=== PATIENT | male | born 1975 | race Caucasian/White ===

== ENCOUNTER 2020-08-19 14:31 | Outpatient (REF) | payer BC, SELFPAY | END 2020-08-19 14:32 | disposition home or self-care (01) | LOC: HO.LAB 14:31 | PROVIDERS: PCP Internal Medicine; Visit Provider Internal Medicine | DX: Z20.828 Contact with and (suspected) exposure to other viral communicable diseases (principal) | CPT/HCPCS: C9803; U0003 ==

== ENCOUNTER 2020-08-30 13:11 | Outpatient (REF) | payer BC, SELFPAY | END 2020-08-30 13:12 | disposition home or self-care (01) | LOC: HO.LAB 13:11 | PROVIDERS: PCP Internal Medicine; Visit Provider Internal Medicine | DX: Z20.822 Contact with and (suspected) exposure to COVID-19 (principal) | CPT/HCPCS: 36415; C9803; U0003 ==

== ENCOUNTER 2021-02-03 07:59 | Outpatient (REF) | payer BC, SELFPAY ==
--- NOTE | 2021-02-03 08:30 | EMG_ITS ---
Bilateral median and ulnar motor and sensory studies were performed. Bilateral radial sensory study was performed and paraspinal muscles were tested. IMPRESSION: 1. Rayp-go-srvltghd bilateral median neuropathy across carpal tunnel. 2. Mild right ulnar neuropathy across cubital tunnel. MD BERNA Travis/KRISTEN / [phone]
== END 2021-02-03 08:00 | disposition home or self-care (01) ==
LOC: HO.NEURO 07:59
PROVIDERS: PCP Internal Medicine Geriatric Medicine; Visit Provider Internal Medicine Geriatric Medicine
DX: G56.03 Carpal tunnel syndrome, bilateral upper limbs (principal)
CPT/HCPCS: 95886; 95911

== ENCOUNTER 2023-07-24 08:21 | Outpatient (REF) | payer SELFPAY ==
[2023-07-24 12:14] LABS: Vitamin B12 743 pg/mL (200-900)
[2023-07-24 12:30] LABS: Alanine Aminotransferase 55 U/L (0-40); Albumin Level 3.9 g/dL (3.5-5.0); Alkaline Phosphatase 62 U/L (39-117); Anion Gap 12 (12-20); Aspartate Amino Transferase 18 U/L (5-37); Bilirubin Direct 0.2 mg/dL (0.0-0.5); Bilirubin Total 0.5 mg/dL (0.0-1.0); Blood Urea Nitrogen 18 mg/dL (9-16); Calcium 9.5 mg/dL (8.4-10.2); Carbon Dioxide 29 mmol/L (22-29); Chloride 104 mmol/L (96-108); Cholesterol 157 mg/dL (<200); Estimated Glomerular Filt Rate > 60; Glucose Random 108 mg/dL (60-115); HDL Cholesterol 56 mg/dL (>40); LDL Cholesterol Calculated 84 mg/dL (<100); Potassium 4.1 mmol/L (3.3-5.1); Sodium 141 mmol/L (135-145); Total Protein 7.2 g/dL (6.5-8.0); Triglycerides 85 mg/dL (<150)
[2023-07-24 14:33] LABS: Creatinine Urine 171.06 mg/dL; Microalbum/Creatinine Ratio Ur 50.8 ug/mg cr (<30)
[2023-07-25 08:14] LABS: HBS Num1 0.48 mIU/mL (0-7.99); HBc Num1 0.07 S/CO (0.00-0.79); HBsAGNum1 0.35 S/CO (0.00-0.99); Hepatitis B Core Antibody Nonreactive (Nonreactive); Hepatitis B Surface Antigen Negative (Negative); ~Hepatitis B Surface Antibody NONREACTIVE (Nonreactive)
== END 2023-07-24 08:22 | disposition home or self-care (01) ==
LOC: HO.HHCL 08:21
PROVIDERS: Visit Provider Internal Medicine Geriatric Medicine
DX: E78.00 Pure hypercholesterolemia, unspecified (principal); E11.65 Type 2 diabetes mellitus with hyperglycemia; I10 Essential (primary) hypertension
CPT/HCPCS: 36415; 80048; 80061; 80076; 82043; 82570; 82607; 86704; 86706; 87340

== ENCOUNTER 2023-08-02 10:57 | Outpatient (REF) | payer SELFPAY ==
[2023-08-02 12:13] LABS: Alanine Aminotransferase 58 U/L (0-40); Alkaline Phosphatase 69 U/L (39-117); Anion Gap 9 (12-20); Aspartate Amino Transferase 24 U/L (5-37); Bilirubin Direct 0.2 mg/dL (0.0-0.5); Bilirubin Total 0.5 mg/dL (0.0-1.0); Blood Urea Nitrogen 17 mg/dL (9-16); Calcium 9.3 mg/dL (8.4-10.2); Carbon Dioxide 30 mmol/L (22-29); Chloride 103 mmol/L (96-108); Cholesterol 141 mg/dL (<200); Estimated Glomerular Filt Rate > 60; Glucose Random 149 mg/dL (60-115); HDL Cholesterol 41 mg/dL (>40); LDL Cholesterol Calculated 74 mg/dL (<100); Potassium 4.6 mmol/L (3.3-5.1); Sodium 137 mmol/L (135-145); Total Protein 7.3 g/dL (6.5-8.0); Triglycerides 133 mg/dL (<150)
[2023-08-02 12:52] LABS: Vitamin B12 877 pg/mL (200-900)
[2023-08-02 14:02] LABS: Creatinine Urine 80.29 mg/dL; Microalbum/Creatinine Ratio Ur 39.8 ug/mg cr (<30)
[2023-08-03 07:24] LABS: HBS Num1 37.14 mIU/mL (0-7.99); HBsAGNum1 0.28 S/CO (0.00-0.99); Hepatitis B Core Antibody Nonreactive (Nonreactive); Hepatitis B Surface Antigen Negative (Negative); ~Hepatitis B Surface Antibody REACTIVE (Nonreactive)
== END 2023-08-02 10:58 | disposition home or self-care (01) ==
LOC: HO.HHCL 10:57
PROVIDERS: Visit Provider Internal Medicine Geriatric Medicine
DX: E11.65 Type 2 diabetes mellitus with hyperglycemia (principal); E78.00 Pure hypercholesterolemia, unspecified; I10 Essential (primary) hypertension
CPT/HCPCS: 36415; 80048; 80061; 80076; 82043; 82570; 82607; 86704; 86706; 87340

== ENCOUNTER 2023-08-21 15:23 | Outpatient (REF) | payer OTHER, SELFPAY ==
[2023-08-21 16:28] LABS: Anion Gap 12 (12-20); Blood Urea Nitrogen 19 mg/dL (9-16); Calcium 9.1 mg/dL (8.4-10.2); Carbon Dioxide 28 mmol/L (22-29); Chloride 104 mmol/L (96-108); Estimated Glomerular Filt Rate > 60; Glucose Random 221 mg/dL (60-115); Potassium 4.6 mmol/L (3.3-5.1); Sodium 139 mmol/L (135-145)
== END 2023-08-21 15:24 | disposition home or self-care (01) ==
LOC: HO.HHCL 15:23
PROVIDERS: Visit Provider Internal Medicine Geriatric Medicine
DX: I10 Essential (primary) hypertension (principal)
CPT/HCPCS: 36415; 80048

== ENCOUNTER 2023-09-05 15:35 | Outpatient (REF) | payer OTHER, SELFPAY ==
--- NOTE | ~2023-09-05 | US_ITS ---
EXAMINATION: US BILATERAL LOWER EXTREMITY DUPLEX. CLINICAL INFORMATION: Decreased pedal pulses COMPARISON: None TECHNIQUE: Duplex Doppler techniques with wave form analysis and measurement of velocities in the common femoral, profunda femoral, superficial femoral, popliteal, tibial and peroneal arteries was performed. The study was performed only at rest. FINDINGS: RIGHT LEG: Common femoral artery: 109 cm/s, Multiphasic Profunda femoris artery: 106 cm/s, Multiphasic Superficial femoral artery (proximal): 93 cm/s, Multiphasic Superficial femoral artery (mid): 92 cm/s, Multiphasic Superficial femoral artery (distal): 77 cm/s, Multiphasic Distal popliteal artery: 77 cm/s, Multiphasic Mid posterior tibial artery: 80 cm/s, Multiphasic Peroneal artery: 78 cm/s, Multiphasic LEFT LEG: Common femoral artery: 125 cm/s, Multiphasic Profunda femoris artery: 55 cm/s, Multiphasic Superficial femoral artery (proximal): 78 cm/s, Multiphasic Superficial femoral artery (mid): 80 cm/s, Multiphasic Superficial femoral artery (distal): 73 cm/s, Multiphasic Proximal Popliteal artery: 86 cm/s, Multiphasic Mid posterior tibial artery: 92 cm/s, Multiphasic Peroneal artery: 51 cm/s, Multiphasic US/US arterial duplex LE BI IMPRESSION: No evidence of lower extremity peripheral vascular disease based on Doppler criteria.
== END 2023-09-05 15:36 | disposition home or self-care (01) ==
LOC: HO.US 15:35
PROVIDERS: PCP Internal Medicine Geriatric Medicine; Visit Provider Internal Medicine Geriatric Medicine
DX: R09.89 Other specified symptoms and signs involving the circulatory and respiratory systems (principal)
CPT/HCPCS: 93925

== ENCOUNTER 2023-09-26 09:12 | Outpatient (REF) | payer OTHER, SELFPAY ==
--- NOTE | ~2023-09-26 | XR_ITS ---
EXAMINATION: XR CHEST CLINICAL INFORMATION: Reason for Exam R06.00 - Dyspnea, unspecified COMPARISON: None TECHNIQUE: 2 views of the chest FINDINGS: Lines and tubes: None. Clear lungs. No pleural effusion. No pneumothorax. Normal cardiomediastinal silhouette. XR/XR chest 2V IMPRESSION: * Clear lungs.
== END 2023-09-26 09:13 | disposition home or self-care (01) ==
LOC: HO.XRAY 09:12
PROVIDERS: PCP Internal Medicine Geriatric Medicine; Referring Provider Internal Medicine Geriatric Medicine; Visit Provider Hospitalist
DX: R06.00 Dyspnea, unspecified (principal)
CPT/HCPCS: 71046

== ENCOUNTER 2023-09-26 09:12 | Outpatient (AMB) | payer OTHER, SELFPAY ==
--- NOTE | 2023-09-26 09:14 | MHC.OFFVIS ---
Intake Vital Signs 09/26/23 09:16 Height 5 ft 10 in Weight 245 lb 13.047 oz BMI 35.3 Pulse 88 Pulse Source Pulse Oximeter Pulse Oximetry (%) 96 Oxygen Delivery Method Room Air Intake Visit Reasons: Cough Allergies No Known Allergies Allergy (Verified 09/26/23 09:17) HPI HPI Comments History of Present Illness Details The patient is here for a pulmonary evaluation. The patient is a very nice 48-year-old gentleman with a known history of diabetes hypertension and hypercholesterolemia. Was in her usual state health until recently when he started developing increasing shortness of breath and cough. He had just been started on an YAMILET-inhibitor. The patient did follow-up with his primary care doctor and he was taken off the YAMILET inhibitor in a lot of his symptoms improved. Still does have some dyspnea on exertion. Mild in severity. 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 Although he denies any significant exposure at 1 time. The patient does have issues with daytime drowsiness. He also has a hard time sleeping. His [place] score is elevated at 10 over 24. Based on the fact the patient has significant cardiovascular risk factors and his ongoing daytime drowsiness with documented snoring the patient will undergo home sleep study. In regards to the shortness of breath he has not had any imaging studies. Clinically the patient is doing well. We did go for brief walking oximetry the patient did very well with a pulse ox of 99 %. Heart rate was stable. Patient likely will benefit from pulmonary function studies but we can have those done in the future. I do not believe that he needs any inhaler at this time. [facility] Medical History (Updated 09/26/23 @ 18:22 by Grayson Dykes MD) Dyspnea Social History (Updated 09/26/23 @ 09:20 by JEAN PIERRE Alexander) Patient Tobacco Use Status: Former Tobacco user Tobacco use type: Cigarette Years Smoked: 10 Years Review of Systems Const Reports daytime sleepiness, Reports difficulty sleeping and Reports snoring Eyes Reports no additional complaints ENT Reports nasal congestion Card Denies chest pain and Reports dyspnea on exertion Resp Reports cough, Reports dyspnea on exertion, Reports snoring and Denies wheezing GI Reports no additional complaints Musc Reports no additional complaints Skin/Breast Denies rash Neuro Reports no additional complaints Endo Denies flushing Cecil/Lymph Denies lymphadenopathy Aller/Immun Denies wheezing Physical Exam Vital Signs: Last Vital Signs Pulse 88 09/26/23 09:16 Pulse Ox 96 09/26/23 09:16 Oxygen Delivery Method Room Air 09/26/23 09:16 BMI result Body Mass Index 35.3 Const General: comfortable HEENT Head: Yes normocephalic Neck Neck: Yes supple Chest Chest palpation & inspection: normal inspection of the chest Resp Effort & Inspection: normal respiratory effort Auscultation: clear to auscultation bilaterally Cardio Heart sounds: S1 normal heart sound present and S2 normal heart sound present GI Palpation (GI): Soft to palpation Skin General skin exam: no rashes or lesions noted Extrem General: Yes no clubbing, cyanosis or edema Assessment & Plan Assessment & Plan (1) Dyspnea: Comment: Likely multifactorial. Feeling better after stopping the YAMILET inhibitor. Code(s): R06.00 - Dyspnea, unspecified Qualifiers: Dyspnea type: dyspnea on exertion Qualified Code(s): R06.09 - Other forms of dyspnea (2) MARY (obstructive sleep apnea): Code(s): G47.33 - Obstructive sleep apnea (adult) (pediatric) Plan CXR Home PSG PFTs in the near future F/U 2-3 months Orders: Orders RT home sleep study Today G47.33 - Obstructive sleep apnea (adult) (pediatric) XR chest 2V Today R06.00 - Dyspnea, unspecified Coding Level of Care Code New Pt Level 4 (74507) Diagnoses Dyspnea on exertion R06.09 Dyspnea type: dyspnea on exertion MARY (obstructive sleep apnea) G47.33 Time Spent (min) 36
[2023-09-26 09:16] VITALS: PULSE 88; O2SAT 96; BMI 35.3
== END 2023-09-26 09:37 | disposition home or self-care (01) ==
PROVIDERS: PCP Internal Medicine Geriatric Medicine; Referring Provider Internal Medicine Geriatric Medicine; Visit Provider Hospitalist
DX: R06.09 Other forms of dyspnea (principal); G47.33 Obstructive sleep apnea (adult) (pediatric)
CPT/HCPCS: 99204

== ENCOUNTER 2024-01-15 15:34 | Outpatient (REF) | payer OTHER, SELFPAY ==
[2024-01-15 18:45] LABS: Anion Gap 12 (12-20); Blood Urea Nitrogen 21 mg/dL (9-16); Calcium 8.6 mg/dL (8.4-10.2); Carbon Dioxide 25 mmol/L (22-29); Chloride 108 mmol/L (96-108); Estimated Glomerular Filt Rate > 60; Glucose Random 218 mg/dL (60-115); Potassium 4.2 mmol/L (3.3-5.1); Sodium 141 mmol/L (135-145)
== END 2024-01-15 15:35 | disposition home or self-care (01) ==
LOC: HO.HHCL 15:34
PROVIDERS: Visit Provider Internal Medicine Geriatric Medicine
DX: I10 Essential (primary) hypertension (principal)
CPT/HCPCS: 36415; 80048

== ENCOUNTER 2024-11-06 09:05 | Outpatient (REF) | payer OTHER, SELFPAY ==
--- OUTSIDE RECORDS SUMMARY | 2024-11-06 09:39 | XMS_ITS | Clinical Summary ---
Author Organization [facility] Address [address] [place] [address] [address] [place] [address] Care Team Providers Care Contract Engineer Name Role Phone Name, Charles FERNANDES Primary Care Provider [phone] Cara Low PharmD Unavailable [phone] Allergies No known active allergies Medications Blood Pressure kitIndications:Hyperte nsion, unspecified type Use once a day 1 kit 2022 Active sildenafil (Viagra) 50 MG tablet take 1 tablet by oral route every day as needed approximately 1 hour before sexual activity 2020 Active empagliflozin (Jardiance) 10 MGIndications:Type 2 diabetes mellitus with hyperglycemia, without long-term current use of insulin ([facility]) Take 1 tablet (10 mg) by mouth Once per day. 30 tablet 5 2024 Active Dulaglutide 0.75 MG/0.5ML solution auto-injectorIndicatio ns:Type 2 diabetes mellitus with hyperglycemia, without long-term current use of insulin ([facility]) Inject 0.75 mg under the skin 1 (one) time per week. 2 mL 5 2024 Active atorvastatin (Lipitor) 20 MG tabletIndications:Type 2 diabetes mellitus with hyperglycemia, without long-term current use of insulin ([facility]),Pure hypercholesterolemia Take 1 tablet (20 mg) by mouth Once daily. 30 tablet 5 2024 Active amLODIPine-valsartan (Exforge) 5-160 MG tabletIndications:Hype rtension, unspecified type Take 1 tablet by mouth Once per day. 30 tablet 2 2024 Active glucose blood (OneTouch Verio) test strip Use to test blood sugar 1 time(s) daily 100 each 3 2024 Active Blood Glucose Monitoring Suppl (OneTouch Verio) w/Device kit Use to test blood sugar once daily as directed 1 kit 2024 Active OneTouch Delica Lancets 33G misc Use to test blood sugar once daily as directed 100 each 3 2024 Active Blood Glucose Monitoring Suppl (FreeStyle Lite) w/Device kitIndications:Type 2 diabetes mellitus with hyperglycemia, without long-term current use of insulin ([facility]),Hypertension , unspecified type 1 kit in the morning. 1 kit 10/21 Discontinued atorvastatin (Lipitor) 20 MG tabletIndications:Type 2 diabetes mellitus with hyperglycemia, without long-term current use of insulin ([facility]) Take 1 tablet (20 mg) by mouth Once daily. 30 tablet 11 10/21 Discontinued( Reorder (will not trigger notification to Pharmacy)) dulaglutide (Trulicity) 0.75 MG/0.5ML solution pen-injectorIndication s:Type 2 diabetes mellitus with hyperglycemia, without long-term current use of insulin ([facility]) Inject 0.75 mg under the skin 1 (one) time per week. 2 mL 11 10/21 Discontinued( Reorder (will not trigger notification to Pharmacy)) budesonide-formoterol (Symbicort) 160-4.5 MCG/ACT inhaler Inhale 2 puffs in the morning and at bedtime. Rinse mouth with water after use to reduce aftertaste and incidence of candidiasis. Do not swallow. 10/21 Discontinued( Med list cleanup (will not trigger notification to Pharmacy)) montelukast (Singulair) 10 MG tablet Take 1 tablet (10 mg) by mouth in the morning. 30 tablet 2 10/21 Discontinued( Med list cleanup (will not trigger notification to Pharmacy)) metFORMIN XR (Glucophage-XR) 500 MG 24 hr tabletIndications:Type 2 diabetes mellitus with hyperglycemia, without long-term current use of insulin ([facility]) TAKE 1 TABLET BY MOUTH EVERY MORNING (DO NOT BREAK, CRUSH, DISSOLVE OR CHEW) 30 tablet 2 10/21 Discontinued( Side effects) amLODIPine (Norvasc) 5 MG tabletIndications:Hype rtension, unspecified type Take 1 tablet (5 mg) by mouth Once per day. 30 tablet 10/21 Discontinued( Alternate therapy) losartan (Cozaar) 100 MG tabletIndications:Type 2 diabetes mellitus with hyperglycemia, without long-term current use of insulin ([facility]),Hypertension , unspecified type Take 1 tablet (100 mg) by mouth Once per day. 90 tablet 3 10/21 Discontinued( Alternate therapy) FreeStyle lancetsIndications:Typ e 2 diabetes mellitus with hyperglycemia, without long-term current use of insulin ([facility]) 1 each by Other route Once daily. Use to test BG once daily as directed 100 each 10/21 Discontinued( Reorder (will not trigger notification to Pharmacy)) glucose blood (FREESTYLE LITE) test stripIndications:Type 2 diabetes mellitus with hyperglycemia, without long-term current use of insulin ([facility]) Use to test blood sugar 1 times daily 50 strip 11 10/21 Discontinued( Reorder (will not trigger notification to Pharmacy)) empagliflozin (Jardiance) 25 MGIndications:Type 2 diabetes mellitus with hyperglycemia, without long-term current use of insulin ([facility]) Take 1 tablet (25 mg) by mouth Once per day. 30 tablet 11 10/21 Discontinued( Reorder (will not trigger notification to Pharmacy)) FreeStyle lancetsIndications:Typ e 2 diabetes mellitus with hyperglycemia, without long-term current use of insulin ([facility]) 1 each by Other route Once daily. Use to test BG once daily as directed 100 each 11 10/21 Discontinued( Alternate therapy) glucose blood (FREESTYLE LITE) test stripIndications:Type 2 diabetes mellitus with hyperglycemia, without long-term current use of insulin ([facility]) Use to test blood sugar once daily as directed 50 strip 11 10/21 Discontinued( Alternate therapy) Active Problems Problem Noted Date Diagnosed Date Mild nonproliferative diabet ic retinopathy of both eyes without macular edema associated with type 2 diabetes mellitus 07/20/2023 Type 2 diabetes mellitus 12/11/2022 Hypertensive disorder 10/30/2022 Erectile dysfunction 09/14/2019 Low back pain 09/14/2019 Weakness of left hand 09/14/2019 Fatty liver 09/04/2011 DM type 2 causing neurological disease, 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 pylori infection 06/15/2010 Overview (10/30/2022): Treated in 2007 Obesity 06/15/2010 PPD positive 06/15/2010 Encounters Date Type Department Care Team Description 10/31/2024 2:15 PM EDT Office Visit [facility] [address] [place] [phone] Evelin Betancourt CNP Routine eye exam (Primary Dx); Type 2 diabetes mellitus with hyperglycemia, without long-term current use of insulin ([facility]) 10/31/2024 Travel 10/23/2024 Patient Outreach [facility] [address] [place], [place] [phone] Charles Ferguson MD Pre-visit Planning (SDOH negative, Tobacco screening negative. ) 10/14/2024 Telephone [facility] [address] [place] [phone] Charles Ferguson MD Chart Prep 10/02/[address] [phone] Charles Ferguson MD Nurse Triage from Last 3 Months Immunizations Name Administration Dates Next Due HepB-CpG 10/31/2023,07/27/2023 MMR 08/21/2023 Pfizer Covid-19 Vaccine 12+ 01/17/2024(Deferred: Patient Refused) Pneumococcal Conjugate PCV 20 06/20/2023 TD (adult), 2 Lf tetanus tox oid, preservative free, adsorbed 08/20/2007 Tdap 04/05/2021 Social History Tobacco Use Types Packs/Day Years Used Date Smoking Tobacco: Never Smokeless Tobacco: Never Tobacco Cessation:Counseling Given: Not Answered Alcohol Use Standard Drinks/Week Comments Never 0 (1 standard drink = 0.6 oz pur e alcohol) Depression Answer Date Recorded Patient Health Questionnaire-9 Score 0 11/06/2023 Patient Health Questionnaire-9 Score 0 11/06/2023 Last PHQ-9: Questionnaire Data Not on file 0 11/06/2023 Housing Stability Answer Date Recorded What is your housing situation today? I have ainsley rebolledo 11/06/[address] you li ve. Do you have problems with any of the following? None of the above 11/06/2023 Food Insecurity Answer Date Recorded Within the past 12 months, y ou worried that your food would run out before you got money to buy more: Never True 11/06/2023 Within the past 12 months,th e food you bought just didn't last and you didn't have enough money to get more: Never True Transportation Answer Date Recorded In the past 12 months, has l ack of transportation kept you from medical appts, meetings, work or from getting things needed for daily living? No 11/06/2023 Utilities Answer Date Recorded In the past 12 months, has t he electric, gas, oil or water company threatened to shut off services in your home? No 11/06/2023 Depression Answer Date Recorded Patient Health Questionnaire-2 Score 0 11/06/2023 Internet Access Answer Date Recorded Internet Access Q1 Yes 10/23/2024 Internet Access Q2 Not on file 10/23/2024 Sex and Gender Information Value Date Recorded Sex Assigned at Male 06/19/2022 10:37 AM EDT Legal Sex Male 10:37 AM EDT Gender Identity Male 06/19/2022 10:37 AM EDT Sexual Orientation Choose not to disclose 2021 10:37 AM EDT Last Filed Vital Signs Vital Sign Reading Time Taken Comments Blood Pressure 138/88 10/31/2024 2:27 PM EDT Pulse 94 10/31/2024 2:27 PM EDT Temperature 36.8 ??C (98.2 ??F) 10/31/2024 2:27 PM ED T Respiratory Rate 18 10/31/2024 2:27 PM EDT Oxygen Saturation 99% 10/31/2024 2:27 PM EDT Inhaled Oxygen Concentration - - Weight 107 kg (236 lb) 10/31/2024 2:27 PM EDT Height 177.8 cm (5' 10 ) 11/06/2023 3:58 PM EDT Body Mass Index 33.86 11/06/2023 3:58 PM EDT Plan of Treatment Upcoming Encounters Date Type Department Care Team (Late st Contact Info) Description 11/17/2024 3:30 PM EDT Medication Management [facility] [address] [place] [phone] Cara Low, PharmD [address] [place] [address] 01/21/2025 11:30 AM EDT Office Visit [facility] [address] [place] [address] [phone] Name, MD Charles [address] [place], [place] [phone] Health Maintenance Due Date Last Done Comments CT Colonography 1976 Colonoscopy 1976 Colorectal Cancer Screening 1976 FIT DNA/Cologuard 1976 FIT 1976 FOBT 1976 HIV Screening 1976 Sigmoidoscopy 1976 Alcohol/Substance Use Screening 1988 Family Planning (PISQ) 02/21/1991 Hepatitis C Screening 02/21/1994 Hepatitis A Vaccines (1 of 2 - Risk 2-dose series) 02/21/1995 COVID-19 Vaccine ( season) 2024 01/08/2021, 12/11/2020 Influenza Vaccine (#1) 2024 Diabetes: Urine Protein Screening 08/02/2024 08/02/2023, 07/24/2023 Eye Exam 08/02/2024 08/02/2023, 06/21/2023 Lipid Panel 08/02/2024 08/02/2023, 12/2022, 11/02/2022, Additional history exists Diabetes: Foot Exam 08/07/2024 08/07/2023, 08/07/2023, 08/07/2023, Additional history exists Depression Screening 11/05/2024 11/06/2023, 11/06/19 24 Tobacco Screening 11/05/2024 11/06/2023 Diabetes: Hemoglobin A1C 01/31/2025 025, 10/21/2024, 01/17/2024, Additional history exists SDOH Screening 10/23/2025 10/23/2024 Zoster Vaccines (1 of 2) 02/21/2026 DTaP/Tdap/Td Vaccines (2 - Td or Tdap) 04/05/2031 04/05/2021, 08/20/2007 RSV Patients and Patients Aged 60 years or older (1 - 1-dose 75+ series) 02/21/2051 Pneumococcal Vaccine: Pediatrics (0 to 5 Years) and At-Risk Patients (6 to 49) Years) Completed 06/20/2023 Hepatitis B Vaccines Completed 10/31/2023, 07/27/20 23 HIB Vaccines Aged Out No longer eligi ble based on patient's age to complete this topic HPV Vaccines Aged Out No longer eligi ble based on patient's age to complete this topic IPV Vaccines Aged Out No longer eligi ble based on patient's age to complete this topic Meningococcal Vaccine Aged Out No eileen tiffanie eligible based on patient's age to complete this topic RSV under 20 months Aged Out No longe r eligible based on patient's age to complete this topic Rotavirus Vaccines Aged Out No longer eligible based on patient's age to complete this topic Goals Goal Patient Goal Type Associated Problems Recent Progress Patient-Stated? Author Blood Pressure < 140/90 Blood Pressure 138/88(2024 2:27 PM EDT) No Puia, Cara, PharmD Record your blood pressure once per day Blood Pressure No Devante, Cara, PharmD Hemoglobin A1c < 7 Result Component 9.4( 2:38 PM EDT) No Bruceia Cara, PharmD Record your blood sugar once daily as directed Result Component No Puia, Cara, PharmD Procedures Procedure Name Priority Date/Time Associated Diagnosis Comments POCT GLYCATED HEMOGLOBIN, TOTAL Routine 10/31/2024 2:38 PM EDT Type 2 diabetes mellitus with hyperglycemia, without long-term current use of insulin ([facility]) POCT GLUCOSE Routine 10/31/2024 2:27 PM EDT Type 2 diabetes mellitus with hyperglycemia, without long-term current use of insulin ([facility]) POCT GLYCATED HEMOGLOBIN, TOTAL Routine 10/21/2024 4:24 PM EST Type 2 diabetes mellitus with hyperglycemia, without long-term current use of insulin ([facility]) ALBUMIN, RANDOM URINE W/CREATININE Routine 08/02/2023 10:59 AM EST LIPID PANEL, STANDARD Routine 08/02/2023 10:59 AM EST HM DIABETES EYE EXAM Routine 08/02/2023 from Last 3 Months or Most Recently Relevant to Health Maintenance Results * (ABNORMAL) POCT HGB A1C (10/31/2024 2:38 PM EDT) Only the most recent of2 resultswithin the time period is included. Hemoglobin A1C 9.4(A) 4.0 - 6.0 % QC Media Lot # [id number] Lot# Expiration Date Blood 10/31/2024 2:38 PM EDT Result [facility] POINT OF CARE TEST ENTER/ EDIT ORDERABLES Final Result * POCT Glucose (10/31/2024 2:27 PM EDT) Glucose Blood, POC 122 60 - 200 mg/dL QC Media Lot # [id number] Lot# Expiration Date Blood Capillary blood specimen / Unknown 10/31/2024 2:27 PM EDT [facility] POINT OF CARE TEST ENTER/ EDIT ORDERABLES Final Result * (ABNORMAL) Albumin, Random Urine W/Creatinine (08/02/2023 10:59 AM EST) Creatinine, Urine 80.29 mg/dL [facility] Microalbumin Urine 32.0 mg/L H [facility] Microalbum Creatinine Ratio Ur 39.8(H) <30 ug/mg cr [facility] Comment:Albumin/Creatinine R at Reference Ranges: Normal: < 30 ug/mg creatinine Microalbuminuria: 30 - 300 ug/mg creatinineClinical Albuminuria: > 300 ug/mg creatinine 08/02/2023 10:5 9 AM EST 08/02/2023 1:01 PM EST us Charles Ferguson MD LAB URINE ORDERABLES Final Resul t Performing Organization Address City/[facility] Co de Phone Number [facility] [address] [place] [phone] * Lipid Panel, Standard (08/02/2023 10:59 AM EST) Triglycerides 133 <150 mg/dL [facility] Comment:Desirable Triglyceri de: less than 150 mg/dLBorderline High Triglyceride 150-199 mg/dLHigh Triglyceride: 200-499 mg/dLVery High Triglyceride: greater than or equal to 5OO mg/dL Cholesterol 141 <200 mg/dL [facility] Comment:Desirable Cholestero l: less than 200 mg/dLBorderline High Cholesterol: 200-239 mg/dLHigh Cholesterol: greater than 239 mg/dL LDL Cholesterol Calculated 74 <100 mg/dL [facility] Comment:Desirable LDL: less than 100 mg/dLNear Optimal/Above Optimal LDL: 110- 129 mg/dLBorderline High LDL: 130-159 mg/dLHigh LDL: 160-189 mg/dLVery High LDL: greater than or equal to 190 mg/dL HDL Cholesterol 41 >40 mg/dL [facility] Comment:Desirable HDL: great er than 40 mg/dL Note: This HDL assay may give artificially low results in patients with liver disease. 08/02/2023 10:5 9 AM EST 08/02/2023 11:38 AM EST us Charles Ferguson MD LAB BLOOD ORDERABLES Final Resul t [facility] [address] [place] [address] [phone] * Diabetes Eye Exam (08/02/2023) Eye Exam Normal Normal Charles Ferguson MD HEALTH MAINTENANCE Final Result from Last 3 Months or Most Recently Relevant to Health Maintenance Insurance , [address] [place] [address] Care Teams Contract Engineer Relationship Specialty Start Date End Date Name, MD Charles [address] [place] [phone] PCP - General Family Medicine 10/27/20 Cara Low PharmD [address] [place] [address] Pharmacist Internal Medicine 12/22/22
--- OUTSIDE RECORDS SUMMARY | 2024-11-06 09:39 | XMS_ITS | Encounter Summary ---
Author Organization [employer] Address [address] [facility] 7t [place] [address] Care Team Providers Care Certified Retinal Angiographer Name Role Phone Name, Charlse FERNANDES Primary Care Provider [phone] Cara Low PharmD Unavailable [phone] Reason for Referral * Consultation (Routine) - Authorized Specialty Diagnoses / Procedures Referred By Veronica marinelli Referred To Contact Optometry Diagnoses Routine eye exam Evelin Betancourt CNP [address] [place] [address] Phone: tel: fax: [facility] [address] [place] [address] Phone: tel: fax: Referral ID Status Reason Start Date Expiration Date Visits Requested Visits Authorized [id number] Authorized Consult and Treat 10/31/2024 10/31/2025 1 1 Reason for Visit * Reason Comments Annual Exam Encounter Details Date Type Department Care Team (Late st Contact Info) Description 10/31/2024 2:15 PM EDT Office Visit [facility] [address] [place] [address] Evelin Betancourt CNP [address] [place] [address] Routine eye exam (Primary Dx); Type 2 diabetes mellitus with hyperglycemia, without long-term current use of insulin ([facility]) Social History Tobacco Use Types Packs/Day Years Used Date Smoking Tobacco: Never Smokeless Tobacco: Never Alcohol Use Standard Drinks/Week Comments Never 0 [...] not to disclose 2021 10:37 AM EDT documented as of this encounter Last Filed Vital Signs Vital Sign Reading Time Taken Comments Blood Pressure 138/88 10/31/2024 2:27 PM EDT Pulse 94 10/31/2024 2:27 PM EDT Temperature 36.8 ??C (98.2 ??F) 10/31/2024 2:27 PM ED T Respiratory Rate 18 10/31/2024 2:27 PM EDT Oxygen Saturation 99% 10/31/2024 2:27 PM EDT Inhaled Oxygen Concentration - - Weight 107 kg (236 lb) 10/31/2024 2:27 PM EDT Height - - Body Mass Index 33.86 11/06/2023 3:58 PM EDT documented in this encounter Progress Notes * Evelin Betancourt, MACHINE I COREMAKER - 10/31/2024 2:15 PM EDT Subjective: Guru Gunter is a 49 y.o. male who presents to the office for a physical exam. PCP Dr Ferguson. Had flu last month, feels fully recovered. Denies recent hospitalization. Reporting some recent vision changes including photosensitivity and not being able to see from afar. Per pt last eye exam 1 year ago. Interim history: DENISE with PCP 1 year ago. BP was uncontrolled, follows with [facility]. Last visit with [facility] 10/21/24 Was started on Trulicity, pt reports that it has been effective. Denies SE at this time. Component Ref Range & Units 14:38 (10/31/24) 14:27 (10/31/24) 10 d ago (10/21/24) 9 mo ago (01/17/24) 12 mo ago (11/06/23) 1 yr ago (10/31/23) 1 yr ago (06/20/23) Hemoglobin A1C 4.0 - 6.0 % 9.4 Abnormal 10.6 Abnormal 8.7 Abnormal 8.3 Abnormal 9.1 Abnormal QC Media Lot # [id number] 2,410,092 10,230,662 10,226,697 110,706 10,225,528 [id number] Lot# Expiration Date 6,112,025 8,262,025 1,292,026 52,224 111,225 6,062,025 No past surgical history on file. No family history on file. Social History Living situation: lives at home with Employment/Education: [employer] out of his own home. Mental health: Patient Health Questionnaire-9 Score: 0 (11/06/2023 4:04 PM) Patient Health Questionnaire-2 Score: 0 (11/06/2023 4:04 PM) Thoughts that you would be better off or hurting yourself in some way: Not at all (11/06/2023 4:04 PM) No Known Allergies Review of Systems Constitutional: Negative for appetite change, fatigue and fever. HENT: Negative. Eyes: Positive for photophobia and visual disturbance. Negative for pain, discharge, redness and itching. Respiratory: Negative. Cardiovascular: Negative. Gastrointestinal: Negative. Endocrine: Negative. Genitourinary: Negative. Musculoskeletal: Negative. Skin: Negative. Allergic/Immunologic: Negative. Neurological: Negative. Hematological: Negative. Psychiatric/Behavioral: Negative. Vitals: 10/31/24 1427 BP: 138/88 Pulse: 94 Resp: 18 Temp: 98.2 ??F (36.8 ??C) TempSrc: Oral SpO2: 99% Weight: 236 lb (107 kg) Physical Exam Vitals reviewed. Constitutional: General: He is not in acute distress. Appearance: Normal appearance. He is not ill-appearing, toxic-appearing or diaphoretic. HENT: Head: Normocephalic and atraumatic. Right Ear: Tympanic membrane normal. Left Ear: Tympanic membrane normal. Nose: Nose normal. Mouth/Throat: Mouth: Mucous membranes are moist. Pharynx: No oropharyngeal exudate or posterior oropharyngeal erythema. Eyes: General: No scleral icterus. Extraocular Movements: Extraocular movements intact. Conjunctiva/sclera: Conjunctivae normal. Pupils: Pupils are equal, round, and reactive to light. Cardiovascular: Rate and Rhythm: Normal rate and regular rhythm. Pulses: Normal pulses. Heart sounds: Normal heart sounds. No murmur heard. No friction rub. No gallop. Pulmonary: Effort: Pulmonary effort is normal. No respiratory distress. Breath sounds: Normal breath sounds. No stridor. No wheezing, rhonchi or rales. Chest: Chest wall: No tenderness. Abdominal: General: Abdomen is flat. Bowel sounds are normal. Musculoskeletal: Cervical back: No tenderness. Right lower leg: No edema. Left lower leg: No edema. Lymphadenopathy: Cervical: No cervical adenopathy. Neurological: General: No focal deficit present. Mental Status: He is alert and oriented to person, place, and time. Mental status is at baseline. Psychiatric: Mood and Affect: Mood normal. Behavior: Behavior normal. Thought Content: Thought content normal. Judgment: Judgment normal. Problem List Items Addressed This Visit Type 2 diabetes mellitus ([facility]) Relevant Orders POCT HGB A1C (Completed) POCT Glucose (Completed) A1c above goal >7 Pt to continue on current medications Pt to continue following with [facility] Pt plans to complete ordered bloodwork Other Visit Diagnoses Routine eye exam - Primary Relevant Orders Referral to [facility] Eye Care Placed referral for routine eye exam. Physical exam showed no acute abnormalities. Plan to f/u with PCP in January for chronic conditions [facility] PROMOTIONS PRODUCER Attestation PROMOTIONS PRODUCER Resident Attestation: Patient was seen and evaluated by Evelin Betancourt CNP, in collaboration with Charles Ferguson MD whohas reviewed my assessment and plan. I, Charles Ferguson, MS, have reviewed the resident's note and agree with the assessment & plan of care as documented above. Visit Conducted in: Welsh Translation by: Provided by [facility] staff member Ac Kolb MA , documented in this encounter Plan of Treatment Upcoming Encounters Date Type Department Care Team (Late st Contact Info) Description 11/17/2024 3:30 PM EDT Medication Management [address] [address] Puia, Cara, PharmD [address] [place] [address] 01/21/2025 11:30 AM EDT Office Visit [facility] [address] [place] [phone] Charles Ferguson MD [address] [place] [address] Scheduled Referrals Name Type Priority Associated Diagnoses Orde r Schedule Referral to [facility] Eye Care Outpatient Referral Routine Routine eye exam Expected: 10/31/2024 (Approximate), Expires: 10/31/2025 documented as of this encounter Goals Goal Patient Goal Type Associated Problems Recent Progress Patient-Stated? Author Blood Pressure < 140/90 Blood Pressure 138/88(2024 2:27 PM EDT) No Puia, Cara, PharmD Record your blood pressure once per day Blood Pressure No Puia, Cara, PharmD Hemoglobin A1c < 7 Result Component 9.4( 2:38 PM EDT) No Puia, Cara, PharmD Record your blood sugar once daily as directed Result Component No Puia, Cara, PharmD documented as of this encounter Procedures Procedure Name Priority Date/Time Associated Diagnosis Comments POCT GLYCATED HEMOGLOBIN, TOTAL Routine 10/31/2024 2:38 PM EDT Type 2 diabetes mellitus with hyperglycemia, without long-term current use of insulin ([facility]) POCT GLUCOSE Routine 10/31/2024 2:27 PM EDT Type 2 diabetes mellitus with hyperglycemia, without long-term current use of insulin ([facility]) documented in this encounter Results * (ABNORMAL) POCT HGB A1C (10/31/2024 2:38 PM EDT) Hemoglobin A1C 9.4(A) 4.0 - 6.0 % QC Media Lot # [id number] Lot# Expiration Date Blood 10/31/2024 2:38 PM EDT Result [facility] POINT OF CARE TEST ENTER/ EDIT ORDERABLES Final Result * POCT Glucose (10/31/2024 2:27 PM EDT) Glucose Blood, POC 122 60 - 200 mg/dL QC Media Lot # [id number] Lot# Expiration Date Blood Capillary blood specimen / Unknown 10/31/2024 2:27 PM EDT Result [facility] POINT OF CARE TEST ENTER/ EDIT ORDERABLES Final Result documented in this encounter Visit Diagnoses Diagnosis Routine eye exam- Primary Examination of eyes and vision Type 2 diabetes mellitus with hyperglycemia, without long-term current use of insulin ([facility]) documented in this encounter Additional Health Concerns Assessment Noted Time PHQ-9 Depression Total Score: 0 11/06/19 24 4:04 PM EDT documented as of this encounter Care Teams Certified Retinal Angiographer Relationship Specialty Start Date End Date Name, MD Charles [address] [place] [address] PCP - General Family Medicine 10/27/20 Cara Low, PharmD [address] [place] [address] Pharmacist Internal Medicine 12/22/22 documented as of this encounter
--- OUTSIDE RECORDS SUMMARY | 2024-11-06 09:39 | XMS_ITS | Encounter Summary ---
Author Organization [employer] Address 75 [facility] 7t [place] [address] Care Team Providers Care Wooden Box Maker Name Role Phone Name, Charles FERNANDES Primary Care Provider [phone] Cara Low PharmD Unavailable [phone] Encounter Details Date Type Department Care Team (Latest Contact Info) Description 10/31/2024 Travel Social History Tobacco Use Types Packs/Day Years [...] AM EDT documented as of this encounter Plan of Treatment Upcoming Encounters Date Type Department Care Team (Late st Contact Info) Description 11/17/2024 3:30 PM EDT Medication Management [address] [address] Puia, Cara, PharmD [address] [place] [address] 01/21/2025 11:30 AM EDT Office Visit [facility] [address] [place] [phone] NameCharles MD [address] [place] [phone] documented as of this encounter Goals Goal [...] Cara, PharmD documented as of this encounter Visit Diagnoses Not on filedocumented in this encounter Additional Health Concerns Assessment Noted Time PHQ-9 Depression Total Score: 0 11/06/19 24 4:04 PM EDT documented as of this encounter Care Teams Wooden Box Maker Relationship Specialty Start Date End Date Charles Ferguson MD [address] [place] [phone] PCP - General Family Medicine 10/27/20 Cara Low, PharmD [address] [place] [phone] Pharmacist Internal Medicine 12/22/22 documented as of this encounter
--- OUTSIDE RECORDS SUMMARY | 2024-11-06 09:39 | XMS_ITS | Encounter Summary ---
Author Organization [employer] Address 75 [facility] 7t [place] [address] Care Team Providers Care Pickup Driver Name Role Phone Name, Charles FERNANDES Primary Care Provider [phone] Cara Low PharmD Unavailable [phone] Reason for Visit * Reason Onset Date Comments Chart Prep 10/14/2024 Encounter Details Date Type Department Care Team ([facility] st Contact Info) Description 10/14/2024 Telephone [facility] [address] [place], [place] [phone] Name, MD Charles [address] [place] [address] Chart Prep Social History Tobacco Use Types Packs/Day Years [...] Recorded Patient Health Questionnaire-2 Score 0 11/06/2023 Sex and Gender Information Value Date Recorded Sex Assigned at Male 06/19/2022 10:37 AM EDT Legal Sex Male 10:37 AM EDT Gender Identity Male 06/19/2022 10:37 AM EDT Sexual Orientation Choose not to disclose 2021 10:37 AM EDT documented as of this encounter Miscellaneous Notes * Telephone Encounter - Ac Kolb MA - 10/14/2024 9:56 AM EST Chart Prep Labs: done Images: done Vaccines due: yes Referrals: pending appt Screenings: colonoscopy , eye exam , STI screening Overdue care gaps: A1C, Glucose, Sbirt, SDOH, PHQ-9, SMITH-7 documented in this encounter Plan of Treatment Upcoming Encounters Date Type Department Care Team (Late st Contact Info) Description 11/17/2024 3:30 PM EDT Medication Management [facility] [address] [place] [phone] Puia, Cara, PharmD [address] [place] [phone] 01/21/2025 11:30 AM EDT Office Visit [facility] [address] [place] [phone] Name, MD Charles [address] [place] [phone] documented as of this encounter Goals Goal Patient Goal Type Associated Problems Recent Progress Patient-Stated? Author Blood Pressure < 140/90 Blood Pressure 138/88(2024 2:27 PM EDT) No Puia, Cara, PharmD Record your blood pressure once per day Blood Pressure No Puia, Cara, PharmD Hemoglobin A1c < 7 Result Component 9.4( 5 2:38 PM EDT) No Cara Low, PharmD Record your blood sugar once daily as directed Result Component No Cara Low, PharmD documented as of this encounter Visit Diagnoses Not on filedocumented in this encounter Additional Health Concerns Assessment Noted Time PHQ-9 Depression Total Score: 0 11/06/19 24 4:04 PM EDT documented as of this encounter Care Teams Pickup Driver Relationship Specialty Start Date End Date Name, MD Charles [address] [place] [address] PCP - General Family Medicine 10/27/20 Cara Low PharmD [address] [place] [address] Pharmacist Internal Medicine 12/22/22 documented as of this encounter
--- OUTSIDE RECORDS SUMMARY | 2024-11-06 09:39 | XMS_ITS | Encounter Summary ---
Author Organization [employer] Address [address] [facility] 7t [place] [address] Care Team Providers Care Internal Controls Manager Name Role Phone Name, Charles FERNANDES Primary Care Provider [phone] Cara Low PharmD Unavailable [phone] Reason for Visit * Reason Comments Pre-visit Planning SDOH negative, Tobac co screening negative. Encounter Details Date Type Department Care Team ([facility] st Contact Info) Description 10/23/2024 Patient Outreach [facility] [address] [place] [address] Name, MD Charles [address] [place] [address] Pre-visit Planning (SDOH negative, Tobacco screening negative. ) Social History Tobacco Use Types Packs/Day Years [...] AM EDT documented as of this encounter Progress Notes * Divina Sharma - 10/23/2024 3:37 PM EST CC Divina Flores placed successful outbound call to patient for pre-visit planning. Patient name and confirmed. Patient confirms appt date and time, and has transportation arrangements. Biggest concern for appointment at this time is patient feels shortness of breath after having flu back in September. Appropriate screenings completed in anticipation of appointment. documented in this encounter Plan of Treatment Upcoming Encounters Date Type Department Care Team (Late st Contact Info) Description 11/17/2024 3:30 PM EDT Medication Management [facility] MEDICINE [address] [place] [phone] Cara Low, PharmD [address] [place] [phone] 01/21/2025 11:30 AM EDT Office Visit [facility] MED[facility]INE [address] [place] [address] Name, MD Charles [address] [place] [phone] documented as of this encounter Goals Goal [...] documented as of this encounter Care Teams Internal Controls Manager Relationship Specialty Start Date End Date Name, MD Charles [address] [place] [address] PCP - General Family Medicine 10/27/20 Cara Low, PharmD [address] [place] [address] Pharmacist Internal Medicine 12/22/22 documented as of this encounter
[2024-11-06 12:07] LABS: Alanine Aminotransferase 53 U/L (0-40); Albumin Level 3.8 g/dL (3.5-5.0); Anion Gap 8 (12-20); Aspartate Amino Transferase 32 U/L (5-37); Bilirubin Direct 0.2 mg/dL (0.0-0.5); Bilirubin Total 0.4 mg/dL (0.0-1.0); Blood Urea Nitrogen 14 mg/dL (9-16); Calcium 8.6 mg/dL (8.4-10.2); Carbon Dioxide 27 mmol/L (22-29); Chloride 108 mmol/L (96-108); Cholesterol 99 mg/dL (<200); Estimated Glomerular Filt Rate > 60; Glucose Random 97 mg/dL (60-115); HDL Cholesterol 35 mg/dL (>40); LDL Cholesterol Calculated 52 mg/dL (<100); Potassium 4.4 mmol/L (3.3-5.1); Sodium 139 mmol/L (135-145); Total Protein 7.3 g/dL (6.5-8.0); Triglycerides 63 mg/dL (<150)
[2024-11-06 12:23] LABS: Alkaline Phosphatase 58 U/L (39-117)
[2024-11-06 12:39] LABS: Creatinine Urine 86.61 mg/dL; Microalbum/Creatinine Ratio Ur 340.6 ug/mg cr (<30)
== END 2024-11-06 09:06 | disposition home or self-care (01) ==
LOC: HO.HHCL 09:05
PROVIDERS: Visit Provider Internal Medicine Geriatric Medicine
DX: I10 Essential (primary) hypertension (principal); E78.00 Pure hypercholesterolemia, unspecified; E11.65 Type 2 diabetes mellitus with hyperglycemia
CPT/HCPCS: 36415; 80048; 80061; 80076; 82043; 82570

== ENCOUNTER 2024-11-18 09:32 | Outpatient (REF) | payer OTHER, SELFPAY ==
--- OUTSIDE RECORDS SUMMARY | 2024-11-18 10:49 | XMS_ITS | Encounter Summary ---
Author Organization [employer] Address [address] [facility] 7t [place] [address] Care Team Providers Care Installer Apprentice Name Role Phone Name, Charles FERNANDES Primary Care Provider [phone] Cara Low PharmD Unavailable [phone] Encounter Details Date Type Department Care Team (Latest Contact Info) Description 11/17/2024 Travel Social History Tobacco Use Types Packs/Day [...] Care Team (Late st Contact Info) Description 12/25/2024 3:30 PM EDT Medication Management [facility] MEDICINE [address] [place] [phone] Puia, Cara, PharmD [address] [place] [phone] 01/21/2025 11:30 AM EDT Office Visit [facility] [address] [place] [phone] NameCharles MD [address] [place] [phone] documented as of this encounter Goals Goal Patient Goal Type Associated Problems Recent Progress Patient-Stated? Author Blood Pressure < 140/90 Blood Pressure 138/78(2024 3:45 PM EDT) No Puia, Cara, PharmD Record [...] documented as of this encounter Care Teams Installer Apprentice Relationship Specialty Start Date End Date Charles Ferguson MD [address] [place] [phone] PCP - General Family Medicine 10/27/20 Cara Low, Meenu [address] [place] [phone] Pharmacist Internal Medicine 12/22/22 documented as of this encounter
--- OUTSIDE RECORDS SUMMARY | 2024-11-18 10:49 | XMS_ITS | Encounter Summary ---
Author Organization [employer] Address [address] [place] [address] 7t [place] [address] Care Team Providers Care Pin Ticket Machine Operator Name Role Phone Name, Charles FERNANDES Primary Care Provider [phone] Cara Low PharmD Unavailable [phone] Encounter Details Date Type Department Care Team ([facility] st Contact Info) Description 11/18/2024 9:00 AM EDT Office Visit [facility] OPT[facility] [address] [place] [phone] Social History Tobacco Use Types Packs/Day Years [...] Description 12/25/2024 3:30 PM EDT Medication Management [address] [address] Puia, Cara, PharmD [address] [place] [phone] 01/21/2025 11:30 AM EDT Office Visit [facility] [address] [place] [phone] Charles Ferguson MD [address] [place] [phone] documented as of this encounter Goals Goal [...] documented as of this encounter Care Teams Pin Ticket Machine Operator Relationship Specialty Start Date End Date Charles Ferguson MD [address] [place] [address] PCP - General Family Medicine 10/27/20 Cara Low PharmD [address] [place] [address] Pharmacist Internal Medicine 12/22/22 documented as of this encounter
--- OUTSIDE RECORDS SUMMARY | 2024-11-18 10:49 | XMS_ITS | Clinical Summary ---
Author Organization [employer] Address [address] [place] [address] 7 [place] [address] Care Team Providers Care Floor Assembler Name Role Phone Name, Charles FERNANDES Primary Care Provider [phone] Cara Low PharmD Unavailable [phone] Allergies No known active allergies Medications Blood Pressure kitIndications:Hyperte nsion, unspecified type Use once a day 1 kit 2022 Active sildenafil (Viagra) 50 MG tablet take 1 tablet by oral route every day as needed approximately 1 hour before sexual activity 2020 Active Dulaglutide 0.75 MG/0.5ML solution auto-injectorIndicatio ns:Type 2 diabetes mellitus with hyperglycemia, without long-term current use of insulin ([facility]) Inject 0.75 mg under the skin 1 (one) time per week. 2 mL 5 2024 Active atorvastatin (Lipitor) 20 MG tabletIndications:Type 2 diabetes mellitus with hyperglycemia, without long-term current use of insulin ([facility]),Pure hypercholesterolemia Take 1 tablet (20 mg) by mouth Once daily. 30 tablet 5 2024 Active glucose blood (OneTouch Verio) test strip Use to test blood sugar 1 time(s) daily 100 each 3 2024 Active Blood Glucose Monitoring Suppl (OneTouch Verio) w/Device kit Use to test blood sugar once daily as directed 1 kit 2024 Active OneTouch Delica Lancets 33G misc Use to test blood sugar once daily as directed 100 each 3 2024 Active empagliflozin (Jardiance) 25 MGIndications:Type 2 diabetes mellitus with hyperglycemia, without long-term current use of insulin ([facility]) Take 1 tablet (25 mg) by mouth Once per day. 30 tablet 11 11/17 Active amLODIPine-valsartan (Exforge) 5-160 MG tabletIndications:Hype rtension, unspecified type Take 1 tablet by mouth Once per day. 90 tablet 3 2024 Active Blood Glucose Monitoring Suppl (FreeStyle Lite) w/Device kitIndications:Type 2 diabetes mellitus with hyperglycemia, without long-term current use of insulin ([facility]),Hypertension , unspecified type 1 kit in the morning. 1 kit 10/21 Discontinued atorvastatin (Lipitor) 20 MG tabletIndications:Type 2 diabetes mellitus with hyperglycemia, without long-term current use of insulin ([facility]) Take 1 tablet (20 mg) by mouth Once daily. 30 tablet 11 10/21 Discontinued( Reorder (will not trigger notification to Pharmacy)) dulaglutide (Trulicity) 0.75 MG/0.5ML solution pen-injectorIndication s:Type 2 diabetes mellitus with hyperglycemia, without long-term current use of insulin ([facility]) Inject 0.75 mg under the skin 1 [...] hyperglycemia, without long-term current use of insulin ([facility]) TAKE 1 TABLET BY MOUTH EVERY MORNING (DO NOT BREAK, CRUSH, DISSOLVE OR CHEW) 30 tablet 2 10/21 Discontinued( Side effects) amLODIPine (Norvasc) 5 MG tabletIndications:Hype rtension, unspecified type Take 1 tablet (5 mg) by mouth Once per day. 30 tablet 11 10/21 Discontinued( Alternate therapy) losartan (Cozaar) 100 MG tabletIndications:Type 2 diabetes mellitus with hyperglycemia, without long-term current use of insulin ([facility]),Hypertension , unspecified type Take 1 tablet (100 mg) by mouth Once per day. 90 tablet 3 10/21 Discontinued( Alternate therapy) FreeStyle lancetsIndications:Typ e 2 diabetes mellitus with hyperglycemia, without long-term current use of insulin ([facility]) 1 each by Other route Once daily. Use to test BG once daily as directed 100 each 10/21 Discontinued( Reorder (will not trigger notification to Pharmacy)) glucose blood (FREESTYLE LITE) test stripIndications:Type 2 diabetes mellitus with hyperglycemia, without long-term current use of insulin ([facility]) Use to test blood sugar 1 times daily 50 strip 10/21 Discontinued( Reorder (will not trigger notification to Pharmacy)) empagliflozin (Jardiance) 25 MGIndications:Type 2 diabetes mellitus with hyperglycemia, without long-term current use of insulin ([facility]) Take 1 tablet (25 mg) by mouth Once per day. 30 tablet 10/21 Discontinued( Reorder (will not trigger notification to Pharmacy)) empagliflozin (Jardiance) 10 MGIndications:Type 2 diabetes mellitus with hyperglycemia, without long-term current use of insulin ([facility]) Take 1 tablet (10 mg) by mouth Once per day. 30 tablet 5 11/17 Discontinued( Dose adjustment) amLODIPine-valsartan (Exforge) 5-160 MG tabletIndications:Hype rtension, unspecified type Take 1 tablet by mouth Once per day. 30 tablet 2 11/17 Discontinued( Reorder (will not trigger notification to Pharmacy)) FreeStyle lancetsIndications:Typ e 2 diabetes mellitus with hyperglycemia, without long-term current use of insulin (CMS/HCC) 1 each by Other route Once daily. Use to test BG once daily as directed 100 each 11 10/21 Discontinued( Alternate therapy) glucose blood (FREESTYLE LITE) test stripIndications:Type 2 diabetes mellitus with hyperglycemia, without long-term current use of insulin (CMS/HCC) Use to test blood sugar once daily [...] Encounters Date Type Department Care Team Description 11/18/2024 9:00 AM EDT Office Visit [facility] [address] [place] [address] 11/17/2024 Travel 10/31/2024 2:15 PM EDT Office Visit [facility] [address] [place] [address] Evelin Betancourt CNP Routine eye exam (Primary Dx); Type 2 diabetes mellitus with hyperglycemia, without long-term current use of insulin (CMS/HCC) 10/31/2024 Travel 10/23/2024 Patient Outreach [facility] [address] [place] [address] Name, MD Charles Pre-visit Planning (SDOH negative, Tobacco screening negative. ) 10/14/2024 Telephone [facility] [address] [place] [address] Name, MD Charles Chart Prep 10/02/2024 Telephone [facility] [address] [place] [address] Name, MD Charles Nurse Triage from Last 3 Months Immunizations [...] Sign Reading Time Taken Comments Blood Pressure 138/78 11/17/2024 3:45 PM EDT Pulse 94 10/31/2024 2:27 PM [...] Description 12/25/2024 3:30 PM EDT Medication Management [facility] [address] [place] [phone] Cara Low, PharmD [address] [place] [phone] 01/21/2025 11:30 AM EDT Office Visit [facility] [address] [place] [phone] Name, MD Charles [address] [place] [phone] Health Maintenance Due Date Last Done Comments CT Colonography 1976 Colonoscopy 1976 Colorectal Cancer Screening 1976 FIT DNA/Cologuard 1976 FIT 1976 FOBT 1976 HIV Screening 1976 Sigmoidoscopy 1976 Alcohol/Substance Use Screening 1988 Family Planning (PISQ) 02/21/1991 Hepatitis C Screening 02/21/1994 Hepatitis A Vaccines (1 of 2 - Risk 2-dose series) 02/21/1995 COVID-19 Vaccine ( season) 2024 01/08/2021, 12/11/2020 Influenza Vaccine (#1) 2024 Eye Exam 08/02/2024 08/02/2023, 06/21/2023 Diabetes: Foot Exam 08/07/2024 08/07/2023, 08/07/2023, 08/07/2023, Additional history exists Depression Screening 11/05/2024 11/06/2023, 11/06/19 Diabetes: Hemoglobin A1C 01/31/2025 025, 10/21/2024, 01/17/2024, Additional history exists SDOH Screening 10/23/2025 10/23/2024 Tobacco Screening 10/23/2025 10/23/2024 Diabetes: Urine Protein Screening 11/06/2025 11/06/2024, 08/02/2023, 07/24/2023 Lipid Panel 11/06/2025 11/06/2024, 07/20, 07/24/2023, Additional history exists Zoster Vaccines (1 of 2) 02/21/2026 DTaP/Tdap/Td [...] Blood Pressure 138/78(2024 3:45 PM EDT) No Cara Low, PharmD Record your blood pressure once per day Blood Pressure No Cara Low, PharmD Hemoglobin A1c < 7 Result Component 9.4( 2:38 PM EDT) No Cara Low, PharmD Record your blood sugar once daily as directed Result Component No Cara Low PharmD Procedures Procedure Name Priority Date/Time Associated Diagnosis Comments ALBUMIN, RANDOM URINE W/CREATININE Routine 11/06/2024 9:11 AM EDT LIPID PANEL, STANDARD Routine 11/06/2024 9:11 AM EDT BASIC METABOLIC PANEL Routine 11/06/2024 9:11 AM EDT HEPATIC FUNCTION PANEL Routine 11/06/2024 9:11 AM EDT POCT GLYCATED HEMOGLOBIN, TOTAL Routine 10/31/2024 2:38 PM EDT Type 2 diabetes mellitus with hyperglycemia, without long-term current use of insulin ([facility]) POCT GLUCOSE Routine 10/31/2024 2:27 PM EDT Type 2 diabetes mellitus with hyperglycemia, without long-term current use of insulin ([facility]) POCT GLYCATED HEMOGLOBIN, TOTAL Routine 10/21/2024 4:24 PM EST Type 2 diabetes mellitus with hyperglycemia, without long-term current use of insulin ([facility]) DIABETES EYE EXAM Routine 08/02/2023 from Last 3 Months or Most Recently Relevant to Health Maintenance Results * (ABNORMAL) Albumin, Random Urine W/Creatinine (11/06/2024 9:11 AM EDT) Creatinine, Urine 86.61 mg/dL [facility] Microalbumin Urine 295.0 mg/L H [facility] Microalbum Creatinine Ratio Ur 340.6(H) <30 ug/mg cr [facility] Comment:Albumin/Creatinine R atio Reference Ranges: Normal: < 30 ug/mg creatinine Microalbuminuria: 30 - 300 ug/mg creatinineClinical Albuminuria: > 300 ug/mg creatinine 11/06/2024 9:11 AM EDT 11/06/2024 11:59 AM EDT us Charles Ferguson MD LAB URINE ORDERABLES Final Resul t Performing Organization Address [facility] de Phone Number [facility] [address] [place] [phone] * (ABNORMAL) Hepatic Function Panel (11/06/2024 9:11 AM EDT) Bilirubin, Total 0.4 0.0 - 1.0 mg/dL [facility] Bilirubin, Direct 0.2 0.0 - 0.5 mg/dL [facility] Aspartate Amino Transferase 32 5 - 37 U/L [facility] Alanine Aminotransferase 53(H) 0 - 40 U/L [facility] Total Protein 7.3 6.5 - 8.0 g/dL [facility] Albumin Level 3.8 3.5 - 5.0 g/dL [facility] Alkaline Phosphatase 58 39 - 117 U/L [facility] 11/06/2024 9:11 AM EDT 11/06/2024 11:21 AM EDT us Charles Ferguson MD LAB BLOOD ORDERABLES Final Resul t Performing Organization Address [facility] Co de Phone Number [facility] [address] [place] [phone] * (ABNORMAL) Lipid Panel, Standard (11/06/2024 9:11 AM EDT) Triglycerides 63 <150 mg/dL [facility] Comment:Desirable Triglyceri de: less than 150 mg/dLBorderline High Triglyceride 150-199 mg/dLHigh Triglyceride: 200-499 mg/dLVery High Triglyceride: greater than or equal to 5OO mg/dL Cholesterol 99 <200 mg/dL [facility] Comment:Desirable Cholestero l: less than 200 mg/dLBorderline High Cholesterol: 200-239 mg/dLHigh Cholesterol: greater than 239 mg/dL LDL Cholesterol Calculated 52 <100 mg/dL [facility] Comment:Desirable LDL: less than 100 mg/dLNear Optimal/Above Optimal LDL: 110- 129 mg/dLBorderline High LDL: 130-159 mg/dLHigh LDL: 160-189 mg/dLVery High LDL: greater than or equal to 190 mg/dL HDL Cholesterol 35(L) >40 mg/dL [facility] Comment:Desirable HDL: great er than 40 mg/dL Note: This HDL assay may give artificially low results in patients with liver disease. 11/06/2024 9:11 AM EDT 11/06/2024 11:21 AM EDT us Charles Name MD LAB BLOOD ORDERABLES Final Resul t [facility] [address] [place] [phone] [phone] * (ABNORMAL) Basic Metabolic Panel (11/06/2024 9:11 AM EDT) Sodium 139 135 - 145 mmol/L [facility] Potassium 4.4 3.3 - 5.1 mmol/L [facility] Chloride 108 96 - 108 mmol/L [facility] Carbon Dioxide 27 22 - 29 mmol/L [facility] Anion Gap 8(L) 12 - 20 [facility] Urea Nitrogen (BUN) 14 9 - 16 mg/dL [facility] Creatinine, Serum 0.77 0.5 - 1.4 mg/dL [facility] Estimated Glomerular Filt Rate >60 [facility] Comment:Chronic Kidney Disea se: Estimated GFR < 60 mL/min/[id number] Kidney Disease: Estimated GFR < 15 mL/min/1.73m2 Glucose 97 60 - 115 mg/dL [facility] Calcium 8.6 8.4 - 10.2 mg/dL [facility] 11/06/2024 9:11 AM EDT 11/06/2024 11:21 AM EDT us Charles Ferguson MD LAB BLOOD ORDERABLES Final Resul t [facility] [address] [place] [phone] * (ABNORMAL) POCT HGB A1C (10/31/2024 2:38 PM EDT) Only the most recent of2 resultswithin the time period is included. Hemoglobin A1C 9.4(A) 4.0 - 6.0 % QC Media Lot # [id number] Lot# Expiration Date Blood 10/31/2024 2:38 PM EDT Result [facility] POINT OF CARE TEST ENTER/ EDIT ORDERABLES Final Result * POCT Glucose (10/31/2024 2:27 PM EDT) Glucose Blood, POC 122 60 - 200 mg/dL [employer] Lot # [id number] Lot# Expiration Date Blood Capillary blood specimen / Unknown 10/31/2024 2:27 PM EDT Result [facility] POINT OF CARE TEST ENTER/ EDIT ORDERABLES Final Result * Hm Diabetes Eye Exam (08/02/2023) Eye Exam Normal Normal Result Zack Ferguson MD HEALTH MAINTENANCE Final Result from Last 3 Months or Most Recently Relevant to Health Maintenance Insurance [facility] , [address] [place] [address] Care Teams Floor Assembler Relationship Specialty Start Date End Date Name, MD Charles [address] [place] [phone] PCP - General Family Medicine 10/27/20 Cara Low PharmD [address] [place] [phone] Pharmacist Internal Medicine 12/22/22
--- OUTSIDE RECORDS SUMMARY | 2024-11-18 10:49 | XMS_ITS | Continuity of Care Document ---
Author Organization [employer] [facility] Address [address] [place] [address] Phone Care Team Providers Care Director Of Valuation Name Role Phone Alin Pradhan MD Unavailable Unavailable Medications Medication Instructions Dosage Effective Dates (start - stop) Status Comments ergocalciferol (vitamin D2) 1,250 mcg (50,000 unit) capsule - Active Ventolin HFA 90 mcg/actuation aerosol inhaler - No Longer Active Advance Directives Directive Yes / No Effective Date File Name No Information Encounters Encounter Description Practice Location Reason(s) For Visit Diagnoses Date Provider Providers Copied on Encounter [facility], [address], [id number], tel:[phone] [facility] No Information Lorne Ogden. [address], [address] [place] [address], [id number], . tel:[phone] Family History Family Member Type Diagnosis Age At Onset No Information Payers Payer name Insurance type Covered democrat ID Authoriza tion(s) No Information Social History Type Description Quantity Date Captured Comments Alcohol Use Details Unknown Caffeine Use Details Unknown Tobacco Use Status Current everyday tobacco user Smoking Status Never used tobacco Non-Smoking Tobacco Use Details : No Details Available : No Details Available Sex Male Gender Identity Male Vital Signs Date / Time: Height Weight BMI Pulse Rate Blood Pressure Temperature Respiratory Rate Body Surface Area Head Circumference Head Circ. Percentile Wt./Konstantin. Percentile BMI percentile Pulse Ox Inhaled Ox 67.00 in 77.120 kg (170.02 lbs) 26.6 0 kg/m eter (2) 60 /min 128/78 mm[Hg] 98.00 F 18 /min 1.91 meter(2) 98 % 67.00 in 75.300 kg (166.01 lbs) 26.0 0 kg/m eter (2) 62 /min 113/78 mm[Hg] 97.90 F 14 /min 1.89 meter(2) 97 % 67.00 in 77.120 kg (170.02 lbs) 26.6 0 kg/m eter (2) 61 /min 125/84 mm[Hg] 98.50 F 12 /min 1.91 meter(2) Chief Complaint And Reason For Visit No Information Reason For Referral Reason For Referral No Information History Of Present Illness Encounter Date Complaint History Of Prese nt Illness No Information Functional Status Date Functional Assessmen t No Information Instructions Date Instruction Additional Infor mation No Information Assessments Type Assessment Date No Information Patient Care Teams Name Effective Dates (start - stop) Status Members No Information
[2024-11-18 11:32] LABS: Appearance Urine Clear; Color Urine Yellow; Glucose Urine UA >=1000 mg/dL (Negative); Leukocyte Esterase Urine Negative (Negative); Nitrite Urine Negative (Negative); PH 6.5 (5.0-9.0); Specific Gravity - Urine 1.025 (1.005-1.025); UMIC TRIGGER UA YES; Urine Blood Small (1+) (Negative); Urine Ketones Negative (Negative); Urine Protein 30 (1+) mg/dL (Neg-Trace)
[2024-11-18 11:46] LABS: Bacteria Urine None Seen (None Seen); Hyaline Casts Urine 0-2 /LPF (0-2); Squamous Epithelial Cell Urine 0-2 /HPF (0-2); WBC Urine 0-5 /HPF (0-5)
[2024-11-18 12:03] LABS: Prostate Specific Antigen 0.23 ng/mL (<0.05-4.0)
== END 2024-11-18 09:33 | disposition home or self-care (01) ==
LOC: HO.HHCL 09:32
PROVIDERS: Visit Provider Internal Medicine Geriatric Medicine
DX: Z12.5 Encounter for screening for malignant neoplasm of prostate (principal); E11.65 Type 2 diabetes mellitus with hyperglycemia; N52.9 Male erectile dysfunction, unspecified; I10 Essential (primary) hypertension
CPT/HCPCS: 36415; 81001; 84153